=== PATIENT | male | born 1985 | race Caucasian/White ===

== ENCOUNTER 2018-07-01 20:16 | Emergency (ER) | payer OTHER, BC ==
[~2018-07-01] VITALS: Ht 167.6 cm; Wt 72.6 kg
[~2018-07-01 20:16] MED LIST: FLEXERIL PO; ZOFRAN ODT4 MG PO; ZPAK PO
[2018-07-01 21:44] VITALS: BP 151/87
== END 2018-07-01 21:45 | disposition home or self-care (01) ==
LOC: ER 20:16
DX: T16.1XXA Foreign body in right ear, initial encounter (principal); X58.XXXA Exposure to other specified factors, initial encounter; Y93.89 Activity, other specified; Y92.89 Other specified places as the place of occurrence of the external cause; Y99.8 Other external cause status